=== PATIENT | female | born 1975 | race African-American/Black ===

== ENCOUNTER 2019-12-15 14:01 | Emergency (ER) | payer BC ==
[~2019-12-15] VITALS: Ht 167.6 cm; Wt 81.7 kg
[2019-12-15 15:27] LABS: ABSOLUTE NEUTROPHILS 4.1 thou/uL (1.4-8.2); BASOPHILS 1.2 % (0.0-2.0); EOSINOPHILS 4.3 % (0.0-3.0); HEMATOCRIT 30.5 % (37.0-47.0); HEMOGLOBIN 9.7 gm/dL (12.0-15.0); LYMPHOCYTES 29.2 % (24.0-44.0); MCH 22.9 pg (26.0-34.0); MCV 71.7 fL (80.0-100.0); MONOCYTES 8.1 % (1.0-8.0); PLATELET COUNT 285 thou/uL (150-400); POLYS 57.2 % (36.0-66.0); RBC 4.25 mil/uL (4.20-5.00); RDW 18.6 % (10.5-14.5); WBC 7.1 thou/uL (4.0-11.0)
[2019-12-15 15:30] LABS: ANION GAP 12 mmol/L (7-16); BUN 8 mg/dL (7-18); CALCIUM 8.4 mg/dL (8.5-10.1); CHLORIDE 103 mmol/L (98-107); CO2 23 mmol/L (21-32); CREATININE 0.7 mg/dL (0.6-1.0); GLUCOSE 102 mg/dL (74-106); POTASSIUM 3.8 mmol/L (3.5-5.1); SODIUM 138 mmol/L (136-145)
[2019-12-15 15:38] LABS: TROPONIN-I <0.06 ng/mL (<0.06)
[2019-12-15 15:53] VITALS: BP 128/84
[2019-12-15 16:07] LABS: MICROCYTES 3+; OVALOCYTES 3+
[2019-12-15 16:08] LABS: ANISOCYTOSIS 2+; HYPOCHROMASIA 3+
--- NOTE | 2019-12-17 08:07 | EKG ---
[facility] [place] [address] ELECTROCARDIOGRAM REPORT Name: MOIZ GONZALES Room #: DEP [facility]#: [id number] Admission: 12/15/19 Attend Phys: Discharge: 12/15/19 Date of : 79 Report #: [id number] THIS REPORT FOR: cc: KATIE - Amparo family physician/PCP KATIE - Amparo family physician/PCP Hamilton Schuler MD ~ THIS REPORT FOR: //name// [facility] ED Test Date: 2019-12-15 Test Time: 14:21:02 Pat Name: MOIZ GONZALES Department: Room: Gender: Switch Cleaner: RANDI : 1975 Requested By: Prasanna Lynn Order Number: [id number] MD: Hamilton Schuler Measurements Intervals [place] Rate: 69 P: 19 TX: 134 QRS: 76 QRSD: 98 T: -11 QT: 374 QTc: 401 Interpretive Statements Sinus rhythm Borderline T abnormalities, diffuse leads No previous ECG available for comparison Electronically Signed On 12-17-2019 8:07:44 CDT by Hamilton Schuler [email or web address] <ELECTRONICALLY SIGNED> By: Hamilton Schuler MD 12/17/19806 142 142 Hamilton Schuler MD /CEFERINO
== END 2019-12-15 16:55 | disposition home or self-care (01) ==
LOC: ER 14:01
PROVIDERS: Emergency Medicine
DX: M25.512 Pain in left shoulder (principal)